=== PATIENT | male | born 1945 | race Caucasian/White ===

== ENCOUNTER 2016-06-02 16:55 | Emergency (ER) | payer MEDICARE, OTHER ==
[~2016-06-02 16:55] MED LIST: ACTOS30 MG; ASPIRIN325 M3 PO; ASPIRIN325 MG PO; ATIVAN1 MG PO; BACTRIM DS TAB1 EAC2 PO; BENTYL20 M1 PO; CELEBREX200 MG PO; CIPRO500 M2 PO; CLINDAMYCIN; COMFORT PAC-MEL15 MG MC; DITROPAN5 MG PO; EQL FISH OIL 1,1 CA1 PO; FISH OIL 1,0001 CA PO; FISH OIL 1,0001 EAC6 PO; FLAGYL; FLOMAX0.4 M1 PO; FLUOXETINE HCL10 MG; H PO; HUMULIN N100 U/ML; HUMULIN N100 U/ML SC; HUMULIN N100 UNIT/2 SC; HUMULIN R INSULIN; HUMULIN R100 U/ML; HUMULIN R100 UNITS/ SC; HUMULIN-R100 UNITS/ SC; LEVOTHYROXINE200 MC4 PO; LEVOTHYROXINE200 MCG PO; LISINOPRIL10 MG; MED FOR PROSTATE CA; METFORMIN HCL1000 MG PO; METFORMIN HCL500 M2 PO; MILK OF MAGNESIA PO; MIRALAX17 G2 PO; MOBIC15 MG; NORCO 5-325 TA1 EACH PO; NORCO 5/325 TAB1 TAB PO; NOVOLIN N100 UNIT/2 SC; NOVOLIN N100 UNIT/2 SQ; PRAVACHOL40 M1 PO; PRAVACHOL40 MG PO; SOMA350 M1 PO; TYLENOL325 MG PO; ULTRAM50 M1 PO; ULTRAM50 MG PO; VYTORIN 10/40 T1 TAB; XARELTO10 MG PO; XTANDI40 M1 PO; [UNRECOGNIZED DRUG - OTHER]
[2016-06-02] MEDS ORDERED: KEFLEX500 M4 PO (18:21)
[2016-06-02] MEDS ORDERED: NYSTOP60 GM EXT (18:21)
== END 2016-06-02 18:43 ==
LOC: EDMED 16:55
DX: L30.9 Dermatitis, unspecified (principal); E11.9 Type 2 diabetes mellitus without complications; Z79.4 Long term (current) use of insulin; Z79.899 Other long term (current) drug therapy

== ENCOUNTER 2016-06-25 17:22 | Emergency (ER) | payer MEDICARE, OTHER ==
[~2016-06-25 17:22] MED LIST changes: +KEFLEX500 M4 PO; +NYSTOP60 GM EXT
== END 2016-06-25 17:44 | disposition left against medical advice (07) ==
LOC: EDMED 17:22
DX: Z53.21 Procedure and treatment not carried out due to patient leaving prior to being seen by health care provider (principal)

== ENCOUNTER 2016-06-29 12:19 | Inpatient (IN) | payer MEDICARE, OTHER ==
[2016-06-29 13:43] LABS: BASO % 0.2 % (0-2); EOSINOPHIL ABSOLUTE COUNT 0.2 tho/cmm (0.0-0.7); HCT-HEMATOCRIT 40.9 % (36.0-53.5); HGB-HEMOGLOBIN 13.8 gm/dl (13.5-17.0); IMMATURE GRANULOCYTES ABSOLUTE 0.03 tho/cmm (0-0.03); IMMATURE GRANULOCYTES PERCENT 0.5 % (0-0.3); LYMPH % 18.2 % (20-45); MCH (MEAN CORPUSCULAR HGB) 32.3 pg (28.0-32.0); MCHC MEAN CORPUSCULAR HGB CONC 33.7 % (32.0-36.0); MCV (MEAN CELL VOLUME) 95.8 fl (82.0-96.0); MEAN PLATELET VOLUME 11.5 cmc (9.4-12.4); MONO % 11.3 % (0-12); MONOCYTE ABSOLUTE COUNT 0.7 tho/cmm (0.0-1.2); NEUTROPHIL ABSOLUTE COUNT 3.8 tho/cmm (1.6-8.0); NEUTROPHIL-AUTOMATED 3.8 tho/cmm (1.6-8.0); NEUTROPHILS % 65.8 % (40-80); PLATELET COUNT 83 tho/cmm (150-450); RED BLOOD COUNT 4.27 mil/cmm (4.40-5.70); RED CELL DISTRIBUTION WIDTH 12.5 % (12.4-16.4); WHITE BLOOD COUNT 5.7 tho/cmm (4.0-10.0)
[2016-06-29 13:50] LABS: INR 0.9 INR (0.9-1.1); PROTHROMBIN TIME 10.5 SECONDS (9.0-13.6)
[2016-06-29 13:57] LABS: ANION GAP 14 mmol/L (0-20); BLOOD UREA NITROGEN 27 mg/dl (6-24); CALCIUM 8.4 mg/dl (8.5-10.5); CARBON DIOXIDE-VENOUS 20 mmol/L (22-32); CHLORIDE 114 mmol/l (96-110); CREATININE 1.65 mg/dl (0.60-1.30); GLUCOSE 248 mg/dL (70-110); POTASSIUM 5.5 mmol/L (3.7-5.1); SODIUM 142 mmol/L (135-145); eGFR VALUE FOR BLACK 48 mL/Min
[2016-06-30 05:18] LABS: ANION GAP 12 mmol/L (0-20); BLOOD UREA NITROGEN 29 mg/dl (6-24); CALCIUM 7.8 mg/dl (8.5-10.5); CARBON DIOXIDE-VENOUS 23 mmol/L (22-32); CHLORIDE 109 mmol/l (96-110); GLUCOSE 363 mg/dL (70-110); POTASSIUM 5.5 mmol/L (3.7-5.1); SODIUM 138 mmol/L (135-145); eGFR VALUE FOR BLACK 43 mL/Min
[2016-06-30 06:38] LABS: BASO % 0.3 % (0-2); EOS % 0.9 % (0-7); EOSINOPHIL ABSOLUTE COUNT 0.1 tho/cmm (0.0-0.7); HCT-HEMATOCRIT 36.6 % (36.0-53.5); HGB-HEMOGLOBIN 12.2 gm/dl (13.5-17.0); LYMPH % 13.3 % (20-45); LYMPH ABSOLUTE COUNT 0.9 tho/cmm (0.8-4.5); MCHC MEAN CORPUSCULAR HGB CONC 33.3 % (32.0-36.0); MCV (MEAN CELL VOLUME) 96.1 fl (82.0-96.0); MONO % 10.5 % (0-12); MONOCYTE ABSOLUTE COUNT 0.7 tho/cmm (0.0-1.2); PLATELET COUNT 72 tho/cmm (150-450); RED BLOOD COUNT 3.81 mil/cmm (4.40-5.70); RED CELL DISTRIBUTION WIDTH 11.6 % (12.4-16.4); WHITE BLOOD COUNT 6.7 tho/cmm (4.0-10.0)
[2016-07-01 06:33] LABS: HGB-HEMOGLOBIN 11.7 gm/dl (13.5-17.0); PLATELET COUNT 79 tho/cmm (150-450)
== END 2016-07-02 13:53 | DRG 481 ==
LOC: 5EB 12:19 → ORE 15:45 → PACU 17:55 → 5EB 20:00
PROVIDERS: Internal Medicine; ADMIT Orthopaedic Surgery Orthopaedic Surgery of the Spine
PROC: 0QS934Z Reposition Left Femoral Shaft with Internal Fixation Device, Percutaneous Approach (ICD-10-PCS; principal; 2016-06-29)
PROC: 5A09357 Assistance with Respiratory Ventilation, Less than 24 Consecutive Hours, Continuous Positive Airway Pressure (ICD-10-PCS; 2016-06-29)
DX: S72.002A Fracture of unspecified part of neck of left femur, initial encounter for closed fracture (principal); C79.51 Secondary malignant neoplasm of bone; N18.3 Chronic kidney disease, stage 3 (moderate); E11.22 Type 2 diabetes mellitus with diabetic chronic kidney disease; Z88.0 Allergy status to penicillin; W19.XXXA Unspecified fall, initial encounter; Y92.019 Unspecified place in single-family (private) house as the place of occurrence of the external cause; Z87.891 Personal history of nicotine dependence; Z92.3 Personal history of irradiation; E03.9 Hypothyroidism, unspecified; E11.40 Type 2 diabetes mellitus with diabetic neuropathy, unspecified; F41.9 Anxiety disorder, unspecified; F32.9 Major depressive disorder, single episode, unspecified; Z96.653 Presence of artificial knee joint, bilateral; Z79.4 Long term (current) use of insulin; E11.649 Type 2 diabetes mellitus with hypoglycemia without coma; I49.1 Atrial premature depolarization; S50.312A Abrasion of left elbow, initial encounter; M19.90 Unspecified osteoarthritis, unspecified site; E78.5 Hyperlipidemia, unspecified; I12.9 Hypertensive chronic kidney disease with stage 1 through stage 4 chronic kidney disease, or unspecified chronic kidney disease; C61 Malignant neoplasm of prostate
CPT/HCPCS: C1713; C1769; J1650; J1815; J2270; J3010